=== PATIENT | female | born 1970 | race Caucasian/White ===

== ENCOUNTER 2023-01-13 15:02 | Day surgery (SDC) | payer BC ==
[2023-01-13] MEDS ORDERED: LIDOCAINE HCL 2% 100 MG/5 ML IJ ONE (15:03)
[2023-01-13] MEDS ORDERED: Decadron 4 MG INJ IV ONE (15:03)
[2023-01-13] MEDS ORDERED: DIPRIVAN 200 MG/20 ML IV ONE ×2 (17:14→17:23)
[2023-01-13] MEDS ORDERED: Lactated Ringers 1,000 ML IV ONE (17:20)
--- NOTE | 2023-01-13 19:14 | XRAY ---
Indication: Left C2-C4 MBB. Intraoperative fluoroscopy provided for 17 seconds. 2 digital spot images submitted for interpretation demonstrates posterior needle tips projecting over the expected left C2-C4 nerve roots. Correlate with intraoperative findings/report.
--- NOTE | 2023-01-14 08:59 | XRAY ---
17 seconds of fluoroscopy was used in surgery for a left C2-C4 MBB.
== END 2023-01-13 17:45 | disposition home or self-care (01) ==
LOC: SDC-PAIN 15:02
PROVIDERS: ATTEND Psychiatry & Neurology Pain Medicine
DX: M47.812 Spondylosis without myelopathy or radiculopathy, cervical region (principal)
CPT/HCPCS: 64490; 64491; 72040; 77002; J1100; J2704

== ENCOUNTER 2023-02-10 14:46 | Day surgery (SDC) | payer BC ==
[2023-02-10] MEDS ORDERED: Decadron 4 MG INJ IV ONE (14:47)
[2023-02-10] MEDS ORDERED: LIDOCAINE HCL 2% 100 MG/5 ML IJ ONE (14:47)
[2023-02-10] MEDS ORDERED: DIPRIVAN 200 MG/20 ML IV ONE (16:34)
[2023-02-10] MEDS ORDERED: Lactated Ringers 1,000 ML IV ONE (17:25)
--- NOTE | 2023-02-11 08:38 | XRAY ---
Indication: Right C2-C4 MBB. Intraoperative fluoroscopy provided for 15 seconds. 2 digital spot images submitted for interpretation demonstrates posterior needle tips projecting over expected right C2-C4 nerve roots. Correlate with intraoperative findings/report.
--- NOTE | 2023-02-11 09:08 | XRAY ---
15 seconds of fluoroscopy was used in surgery for a right C2-C4 MBB
== END 2023-02-10 17:05 | disposition home or self-care (01) ==
LOC: SDC-PAIN 14:46
PROVIDERS: ATTEND Psychiatry & Neurology Pain Medicine
DX: M47.812 Spondylosis without myelopathy or radiculopathy, cervical region (principal); Z79.899 Other long term (current) drug therapy
CPT/HCPCS: 64490; 64491; 72040; 77002; J1100; J2704

== ENCOUNTER 2023-03-17 15:53 | Day surgery (SDC) | payer BC ==
[2023-03-17] MEDS ORDERED: Decadron 4 MG INJ IV ONE (15:54)
[2023-03-17] MEDS ORDERED: Sodium Chloride 0.9(Preservative Free) 10 ML IJ ONE (15:54)
[2023-03-17] MEDS ORDERED: LIDOCAINE HCL 1% 50 MG/5 ML VL PF IJ ONE (15:54)
--- NOTE | 2023-03-17 21:28 | XRAY ---
Indication: Cervical DANK. Intraoperative fluoroscopy provided for 47 seconds. 5 digital spot image submitted for interpretation demonstrates posterior needle tip projecting posterior to cervical thoracic junction. Small amount of contrast injected for needle tip placement. Correlate with intraoperative findings/report.
--- NOTE | 2023-03-18 09:39 | XRAY ---
47 seconds of fluoroscopy was used in surgery for a cervical DANK.
== END 2023-03-17 18:58 | disposition home or self-care (01) ==
LOC: SDC-PAIN 15:53
PROVIDERS: ATTEND Psychiatry & Neurology Pain Medicine
DX: M54.12 Radiculopathy, cervical region (principal); Z79.899 Other long term (current) drug therapy
CPT/HCPCS: 62321; 72040; 77003; 82947; J1100; J2001; Q9966

== ENCOUNTER → 2023-05-12 | Day surgery (SDC) | payer BC ==
[~2023-05-12] MED LIST: BUPIVACAINE 0.5% VIAL IJ ONE; DIPRIVAN 200 MG/20 ML IV ONE; Decadron 4 MG INJ IV ONE; Lactated Ringers 1,000 ML IV ONE
--- NOTE | 2023-05-12 18:44 | XRAY ---
Indication: Right C2-C4 MBB. Intraoperative fluoroscopy provided for 15 seconds. 2 digital spot image submitted for interpretation demonstrates posterior needle tips projecting over the expected right C2-C4 nerve roots. Correlate with intraoperative findings/report.
--- NOTE | 2023-05-12 18:50 | XRAY ---
15 seconds of fluoroscopy was used in surgery for a right C2-C4 MBB.
== END ==
LOC: SDC-PAIN 14:11
PROVIDERS: ATTEND Psychiatry & Neurology Pain Medicine
DX: M47.812 Spondylosis without myelopathy or radiculopathy, cervical region (principal)
CPT/HCPCS: 64490; 64491; 72040; 77002; J1100; J2704

== ENCOUNTER 2023-07-21 14:29 | Day surgery (SDC) | payer BC, OTHER ==
[2023-07-21] MEDS ORDERED: Decadron 4 MG INJ IV ONE (14:30)
[2023-07-21] MEDS ORDERED: BUPIVACAINE 0.5% VIAL IJ ONE (14:30)
[2023-07-21] MEDS ORDERED: DIPRIVAN 200 MG/20 ML IV ONE (15:47)
[2023-07-21] MEDS ORDERED: Lactated Ringers 1,000 ML IV ONE (15:52)
--- NOTE | 2023-07-22 10:54 | XRAY ---
17 seconds of fluoroscopy was used in surgery for a left C2-C4 MBB.
== END 2023-07-21 16:30 | disposition home or self-care (01) ==
LOC: SDC-PAIN 14:29
PROVIDERS: ATTEND Psychiatry & Neurology Pain Medicine
DX: M47.812 Spondylosis without myelopathy or radiculopathy, cervical region (principal)
CPT/HCPCS: 64490; 64491; 72040; 77002; J1100; J2704

== ENCOUNTER 2023-08-18 11:35 | Day surgery (SDC) | payer BC, OTHER ==
[2023-08-18] MEDS ORDERED: Depo-Medrol 40 MG/ML IM ONE (11:36)
[2023-08-18] MEDS ORDERED: LIDOCAINE HCL 1% 50 MG/5 ML VL PF IJ ONE (11:36)
[2023-08-18] MEDS ORDERED: BUPIVACAINE 0.5% VIAL IJ ONE (11:36)
[2023-08-18] MEDS ORDERED: DIPRIVAN 200 MG/20 ML IV ONE ×2 (15:14→15:23)
[2023-08-18] MEDS ORDERED: Lactated Ringers 1,000 ML IV ONE (16:01)
--- NOTE | 2023-08-18 16:40 | XRAY ---
Indication: Right C2-C4 RFA. Intraoperative fluoroscopy provided for 19 seconds. 3 digital spot image submitted for interpretation demonstrates posterior needle tips projecting over the expected right C2-C4 nerve roots. Correlate with intraoperative findings/report.
--- NOTE | 2023-08-18 16:46 | XRAY ---
19 seconds of fluoroscopy was used in surgery for a right C2-C4 RFA.
== END 2023-08-18 15:50 | disposition home or self-care (01) ==
LOC: SDC-PAIN 11:35
PROVIDERS: ATTEND Psychiatry & Neurology Pain Medicine
DX: M47.812 Spondylosis without myelopathy or radiculopathy, cervical region (principal)
CPT/HCPCS: 64633; 64634; 72040; 77002; J1030; J2001; J2704

== ENCOUNTER 2023-08-25 10:29 | Day surgery (SDC) | payer OTHER ==
[2023-08-25] MEDS ORDERED: LIDOCAINE HCL 1% 50 MG/5 ML VL PF IJ ONE (10:30)
[2023-08-25] MEDS ORDERED: Decadron 4 MG INJ IV ONE (10:30)
[2023-08-25] MEDS ORDERED: BUPIVACAINE 0.5% VIAL IJ ONE (10:30)
[2023-08-25] MEDS ORDERED: DIPRIVAN 200 MG/20 ML IV ONE ×2 (12:22→12:31)
[2023-08-25] MEDS ORDERED: Lactated Ringers 1,000 ML IV ONE (12:45)
--- NOTE | 2023-08-25 13:05 | XRAY ---
Indication: Left C2-C4 RFA. Intraoperative fluoroscopy provided for 21 seconds. 2 digital spot image submitted for interpretation demonstrates posterior needle tips projecting over the expected left C2-C4 nerve roots. Correlate with intraoperative findings/report.
--- NOTE | 2023-08-25 14:06 | XRAY ---
21 seconds of fluoroscopy was used in surgery for a left C2-C4 RFA.
== END 2023-08-25 13:10 | disposition home or self-care (01) ==
LOC: SDC-PAIN 10:29
PROVIDERS: ATTEND Psychiatry & Neurology Pain Medicine
DX: M47.812 Spondylosis without myelopathy or radiculopathy, cervical region (principal)
CPT/HCPCS: 64633; 64634; 72040; 77002; J1100; J2001; J2704